=== PATIENT | male | born 1990 | race Caucasian/White ===

== ENCOUNTER 2017-10-16 13:40 | Emergency (ER) | payer OTHER, SELFPAY ==
--- NOTE | 2017-10-16 13:22 | RAD_ITS ---
STUDY: X-RAY - LEFT KNEE REASON FOR EXAM: Male, 27 years old. Pain TECHNIQUE: 4 view(s) of the knee. COMPARISON: None. FINDINGS: No evidence for an acute fracture seen. Subtle patellar subluxation cannot be excluded from this examination. Small knee joint effusion suspected. Femoral condyles are within normal limits. Tibial plateaus are within normal limits. IMPRESSION: No definite evidence for acute fractures. Small knee joint effusion. Subtle patellar subluxation please consider MRI exam for better assessment of transient patellar subluxation. Electronically Signed: Pete Price, at 14:03 EDT Tel , Service support , RAD/Knee 4 or More Views
--- NOTE | 2017-10-16 13:40 | DT_ITS ---
This patient was seen during an EMR downtime October 11, 2017 - October 18, 2017. This patient may have a combination of paper and electronic documentation or all paper documentation. All documentation is viewable within the e-chart portion of [facility] for each patient visit.
== END 2017-10-16 14:10 | disposition home or self-care (01) ==
LOC: ED 10-17 13:49
PROVIDERS: Emergency Provider Emergency Medicine
DX: S83.002A Unspecified subluxation of left patella, initial encounter (principal); S83.92XA Sprain of unspecified site of left knee, initial encounter; Z72.0 Tobacco use; W01.0XXA Fall on same level from slipping, tripping and stumbling without subsequent striking against object, initial encounter; Y93.02 Activity, running; Y92.84 Military training ground as the place of occurrence of the external cause; Y99.1 Military activity
CPT/HCPCS: 73564; 99283